=== PATIENT | male | born 1945 | race Caucasian/White ===

== ENCOUNTER 2022-11-09 14:37 | Outpatient (CLI) | payer MEDICARE, BC | END 2022-11-09 14:38 | disposition home or self-care (01) | LOC: CSHMRI 14:37 | PROVIDERS: ATTEND Psychiatry & Neurology Neurology | DX: M48.061 Spinal stenosis, lumbar region without neurogenic claudication (principal); M47.817 Spondylosis without myelopathy or radiculopathy, lumbosacral region | CPT/HCPCS: 72148 ==

== ENCOUNTER 2023-04-19 15:37 | Inpatient (IN) | payer MEDICARE, BC ==
[2023-04-19 16:06] VITALS: BMI 34.2
[2023-04-19] MEDS ORDERED: FLU VACC QS2023(65UP)/MF59C/PF 60 MCG/0.5 ML SYRINGE IM ONE (16:30)
[2023-04-19] MEDS ORDERED: Ondansetron PF 4 MG/2 ML Vial IVP PRN (18:08)
[2023-04-19] MEDS ORDERED: Ondansetron ODT 4 MG TAB PO PRN (18:08)
[2023-04-19] MEDS ORDERED: Glucagon 1 MG/ML KIT IM PRN (18:10)
[2023-04-19] MEDS ORDERED: Dextrose 5% in Water 1,000 ML IV PRN (18:10)
[2023-04-19] MEDS ORDERED: Dextrose 50% Abboject 50 ML SYRINGE SLOW IVP PRN (18:10)
[2023-04-19] MEDS ORDERED: HumaLOG 300 UNITS/3 ML VIAL SC PRN (18:10)
[2023-04-19] MEDS: Sodium Chloride 0.9% 1,000 ML IV SCH (18:24)
[2023-04-19] MEDS: HumaLOG 300 UNITS/3 ML VIAL SC PRN (18:40)
[2023-04-19] MEDS ORDERED: Bisacodyl 10 MG SUPP PR PRN (18:42)
[2023-04-19] MEDS ORDERED: hydrALAZINE 20 MG/ML VIAL SLOW IVP PRN (19:02)
[2023-04-19] MEDS ORDERED: Piperacillin/Tazobactam 3.375 GM in Sodium Chloride 0.9% 100 ML IVPB SCH (20:00)
[2023-04-19] MEDS: Pantoprazole 40 MG VIAL IVP SCH (20:18)
[2023-04-19 22:01] LABS: Lactic Acid 4.3 mmol/L (0.5-2.2)
[2023-04-19] MEDS ORDERED: Lactated Ringer's 1,000 ML IV SCH (22:45)
[2023-04-19 23:28] LABS: Bilirubin Neg (Negative); Blood, Urine Negative (Negative); Clarity Clear (Clear); Glucose, Urine (Dipstick) Normal (Negative); Ketone, Urine 5 mg/dL (Negative); Leukocyte Negative (Negative); Nitrite Negative (Negative); Protein, Urine (Dipstick) 15 mg/dl (Neg-Trace); Urobilinogen Normal mg/dL (Less than 2)
[2023-04-19] MEDS: Piperacillin/Tazobactam 3.375 GM in Sodium Chloride 0.9% 100 ML IVPB SCH (23:46)
[2023-04-19 23:58] LABS: Bacteria/HPF Rare-Few HPF (None Seen); CAUTI Indications for Culture Pelvic or flank pain; RBC/HPF None Seen HPF (0-3); WBC/HPF 0-3 HPF (0-3)
[2023-04-20] LABS: Urine Culture Reflex No No
[2023-04-20] MEDS: Sodium Chloride 0.9% 1,000 ML IV SCH ×4 (01:33→21:44)
[2023-04-20 02:35] LABS: Lactic Acid 2.3 mmol/L (0.5-2.2)
[2023-04-20 05:58] LABS: #Monocytes 1.3 10x3/uL (0.0-1.1); #Neutrophils 11.8 10x3/uL (1.5-8.4); %Basophils 0.3 % (0.0-2.0); %Eosinophils 0.1 % (0.0-6.0); %Lymphocytes 8.6 % (18.0-47.0); %Monocytes 8.7 % (0.0-10.0); %Neutrophils 81.6 % (40.0-75.0); Hematocrit 26.1 % (38.8-50.0); Hemoglobin 8.9 g/dL (13.5-17.5); Mean Corpuscular HGB CONC 34.1 g/dL (32.0-36.0); Mean Corpuscular Hemoglobin 30.7 pg (27.0-33.0); Mean Platelet Volume 9.7 fl (7.4-10.4); Platelet Count 178 10x3/uL (150-450); RBC Distribution Width 14.4 % (11.5-14.5); White Blood Cell (WBC) Count 14.5 10x3/uL (3.5-10.5)
[2023-04-20 06:05] LABS: ALT (SGPT) 18 U/L (8-55); AST (SGOT) 16 U/L (5-34); Albumin 3.1 g/dL (3.4-4.8); Alkaline Phosphatase 34 U/L (40-110); Anion Gap 13 mmol/L (10-20); BUN (Urea Nitrogen) 34 mg/dL (8.4-25.7); Bilirubin, Total 1.6 mg/dL (0.2-1.2); Calc. Creatinine Clearance 72 mL/min (70-130); Calcium 7.8 mg/dL (7.8-10.44); Carbon Dioxide 22 mmol/L (23-31); Chloride 108 mmol/L (98-107); Estimated GFR 58; Glucose 160 mg/dL (83-110); Lipase 56 U/L (8-78); Magnesium 1.3 mg/dL (1.6-2.6); Potassium 4.4 mmol/L (3.5-5.1); Protein, Total 5.1 g/dL (5.8-8.1); Sodium 139 mmol/L (136-145)
[2023-04-20 06:13] LABS: Cardiac Risk 4.1 (Less than 4.5); Cholesterol 116 mg/dl (< 200 Desired); HDL Cholesterol 28 mg/dL (>60 Neg Risk); LDL Cholesterol, Calculated 53 mg/dL; Triglycerides 174 mg/dL (Less than 150)
[2023-04-20] MEDS: Piperacillin/Tazobactam 3.375 GM in Sodium Chloride 0.9% 100 ML IVPB SCH ×2 (08:38→15:49)
[2023-04-20] MEDS: Pantoprazole 40 MG VIAL IVP SCH ×2 (08:39→21:44)
[2023-04-20] MEDS: Polyethylene Glycol 3350 17 GM Packet PO SCH (08:39)
[2023-04-20] MEDS: Magnesium 2 GM/50 ML(in water) 2 GM in Premix Bag 1 BAG IVPB SCH ×2 (08:39→10:00)
[2023-04-20] MEDS ORDERED: cloNIDine 0.1 MG TAB PO PRN (14:55)
[2023-04-20] MEDS ORDERED: Losartan Potassium 50 MG TAB PO SCH (16:00)
[2023-04-20] MEDS ORDERED: Acetaminophen 650 MG/20.3 ML UDCUP PO PRN (18:42)
[2023-04-21] MEDS: Piperacillin/Tazobactam 3.375 GM in Sodium Chloride 0.9% 100 ML IVPB SCH ×3 (00:01→17:11)
[2023-04-21] MEDS: Sodium Chloride 0.9% 1,000 ML IV SCH (03:47)
[2023-04-21 05:56] LABS: #Monocytes 0.7 10x3/uL (0.0-1.1); #Neutrophils 6.7 10x3/uL (1.5-8.4); %Basophils 0.3 % (0.0-2.0); %Eosinophils 0.5 % (0.0-6.0); %Lymphocytes 15.3 % (18.0-47.0); %Monocytes 7.9 % (0.0-10.0); %Neutrophils 75.4 % (40.0-75.0); Hematocrit 22.4 % (38.8-50.0); Hemoglobin 7.4 g/dL (13.5-17.5); Mean Corpuscular Hemoglobin 30.6 pg (27.0-33.0); Mean Corpuscular Volume 92.6 fl (81.2-95.1); Mean Platelet Volume 9.5 fl (7.4-10.4); Platelet Count 145 10x3/uL (150-450); RBC Distribution Width 14.6 % (11.5-14.5); Red Blood Cell (RBC) Count 2.42 10x6/uL (4.32-5.72); White Blood Cell (WBC) Count 8.9 10x3/uL (3.5-10.5)
[2023-04-21 06:12] LABS: ALT (SGPT) 16 U/L (8-55); AST (SGOT) 26 U/L (5-34); Albumin 2.9 g/dL (3.4-4.8); Alkaline Phosphatase 35 U/L (40-110); Anion Gap 12 mmol/L (10-20); BUN (Urea Nitrogen) 24 mg/dL (8.4-25.7); Bilirubin, Total 1.7 mg/dL (0.2-1.2); Calc. Creatinine Clearance 85 mL/min (70-130); Calcium 7.9 mg/dL (7.8-10.44); Carbon Dioxide 22 mmol/L (23-31); Chloride 109 mmol/L (98-107); Estimated GFR 71; Globulin 2.2 g/dL (2.4-3.5); Glucose 95 mg/dL (83-110); Magnesium 1.9 mg/dL (1.6-2.6); Potassium 3.8 mmol/L (3.5-5.1); Protein, Total 5.1 g/dL (5.8-8.1); Sodium 139 mmol/L (136-145)
[2023-04-21] MEDS: Glimepiride 2 MG TAB PO SCH (07:05)
[2023-04-21] MEDS: Polyethylene Glycol 3350 17 GM Packet PO SCH (08:29)
[2023-04-21] MEDS: Aspirin Chewable 81 MG TAB PO SCH (08:29)
[2023-04-21] MEDS: Losartan Potassium 50 MG TAB PO SCH (08:29)
[2023-04-21] MEDS: 1/2 NS w/KCL 20 mEq 1,000 ML IV SCH ×2 (08:30→17:06)
[2023-04-21] MEDS ORDERED: Magnevist 469MG/ML 20 ML VIAL ONE (10:32)
[2023-04-21 17:33] LABS: #Eosinphils 0.1 10x3/uL (0.0-0.5); #Monocytes 0.6 10x3/uL (0.0-1.1); #Neutrophils 6.5 10x3/uL (1.5-8.4); %Basophils 0.2 % (0.0-2.0); %Eosinophils 0.9 % (0.0-6.0); %Lymphocytes 13.9 % (18.0-47.0); %Monocytes 7.4 % (0.0-10.0); %Neutrophils 76.9 % (40.0-75.0); Hematocrit 22.7 % (38.8-50.0); Hemoglobin 7.6 g/dL (13.5-17.5); Mean Corpuscular HGB CONC 33.5 g/dL (32.0-36.0); Mean Corpuscular Hemoglobin 30.9 pg (27.0-33.0); Mean Corpuscular Volume 92.3 fl (81.2-95.1); Mean Platelet Volume 9.6 fl (7.4-10.4); Platelet Count 154 10x3/uL (150-450); RBC Distribution Width 14.5 % (11.5-14.5); Red Blood Cell (RBC) Count 2.46 10x6/uL (4.32-5.72); White Blood Cell (WBC) Count 8.5 10x3/uL (3.5-10.5)
[2023-04-22] MEDS: 1/2 NS w/KCL 20 mEq 1,000 ML IV SCH ×2 (01:26→16:33)
[2023-04-22] MEDS: Piperacillin/Tazobactam 3.375 GM in Sodium Chloride 0.9% 100 ML IVPB SCH ×3 (01:26→16:42)
[2023-04-22 04:25] LABS: #Eosinphils 0.1 10x3/uL (0.0-0.5); #Monocytes 0.6 10x3/uL (0.0-1.1); #Neutrophils 6.3 10x3/uL (1.5-8.4); %Basophils 0.1 % (0.0-2.0); %Eosinophils 1.1 % (0.0-6.0); %Lymphocytes 15.6 % (18.0-47.0); %Monocytes 6.9 % (0.0-10.0); %Neutrophils 75.5 % (40.0-75.0); Hematocrit 25.2 % (38.8-50.0); Hemoglobin 8.3 g/dL (13.5-17.5); Mean Corpuscular HGB CONC 32.9 g/dL (32.0-36.0); Mean Corpuscular Hemoglobin 31.1 pg (27.0-33.0); Mean Corpuscular Volume 94.4 fl (81.2-95.1); Mean Platelet Volume 10.3 fl (7.4-10.4); Platelet Count 168 10x3/uL (150-450); RBC Distribution Width 14.3 % (11.5-14.5); Red Blood Cell (RBC) Count 2.67 10x6/uL (4.32-5.72); White Blood Cell (WBC) Count 8.4 10x3/uL (3.5-10.5)
[2023-04-22] MEDS: Losartan Potassium 50 MG TAB PO SCH (09:25)
[2023-04-22] MEDS: Aspirin Chewable 81 MG TAB PO SCH (09:26)
[2023-04-22] MEDS: Glimepiride 2 MG TAB PO SCH (09:26)
[2023-04-22] MEDS: Polyethylene Glycol 3350 17 GM Packet PO SCH (09:28)
[2023-04-22] MEDS: HumaLOG 300 UNITS/3 ML VIAL SC PRN (12:51)
[2023-04-22] MEDS: Acetaminophen 650 MG/20.3 ML UDCUP PO PRN (18:43)
[2023-04-23] MEDS: Piperacillin/Tazobactam 3.375 GM in Sodium Chloride 0.9% 100 ML IVPB SCH ×3 (01:13→16:51)
[2023-04-23] MEDS: 1/2 NS w/KCL 20 mEq 1,000 ML IV SCH ×3 (01:15→21:35)
[2023-04-23 05:17] LABS: #Eosinphils 0.1 10x3/uL (0.0-0.5); #Monocytes 0.5 10x3/uL (0.0-1.1); #Neutrophils 4.5 10x3/uL (1.5-8.4); %Basophils 0.6 % (0.0-2.0); %Eosinophils 1.9 % (0.0-6.0); %Lymphocytes 17.2 % (18.0-47.0); %Monocytes 8.4 % (0.0-10.0); %Neutrophils 71.1 % (40.0-75.0); Hematocrit 20.9 % (38.8-50.0); Hemoglobin 7.1 g/dL (13.5-17.5); Mean Corpuscular Hemoglobin 31.4 pg (27.0-33.0); Mean Corpuscular Volume 92.5 fl (81.2-95.1); Mean Platelet Volume 9.7 fl (7.4-10.4); Platelet Count 161 10x3/uL (150-450); RBC Distribution Width 14.5 % (11.5-14.5); Red Blood Cell (RBC) Count 2.26 10x6/uL (4.32-5.72); White Blood Cell (WBC) Count 6.3 10x3/uL (3.5-10.5)
[2023-04-23] MEDS: Glimepiride 2 MG TAB PO SCH (08:23)
[2023-04-23] MEDS: Losartan Potassium 50 MG TAB PO SCH (08:23)
[2023-04-23] MEDS: Aspirin Chewable 81 MG TAB PO SCH (08:23)
[2023-04-23] MEDS: Polyethylene Glycol 3350 17 GM Packet PO SCH ×2 (08:26→08:30)
[2023-04-23 13:19] LABS: Hematocrit 23.5 % (38.8-50.0); Hemoglobin 7.8 g/dL (13.5-17.5); Platelet Count 180 10x3/uL (150-450)
[2023-04-24] MEDS: Piperacillin/Tazobactam 3.375 GM in Sodium Chloride 0.9% 100 ML IVPB SCH ×4 (01:46→23:17)
[2023-04-24] MEDS: 1/2 NS w/KCL 20 mEq 1,000 ML IV SCH ×2 (06:55→17:42)
[2023-04-24 08:01] LABS: #Eosinphils 0.1 10x3/uL (0.0-0.5); #Monocytes 0.4 10x3/uL (0.0-1.1); #Neutrophils 3.4 10x3/uL (1.5-8.4); %Basophils 0.6 % (0.0-2.0); %Lymphocytes 21.3 % (18.0-47.0); %Monocytes 7.5 % (0.0-10.0); %Neutrophils 67.4 % (40.0-75.0); Hematocrit 21.3 % (38.8-50.0); Mean Corpuscular HGB CONC 32.9 g/dL (32.0-36.0); Mean Corpuscular Hemoglobin 31.3 pg (27.0-33.0); Mean Corpuscular Volume 95.1 fl (81.2-95.1); Mean Platelet Volume 9.8 fl (7.4-10.4); Platelet Count 171 10x3/uL (150-450); RBC Distribution Width 14.3 % (11.5-14.5); Red Blood Cell (RBC) Count 2.24 10x6/uL (4.32-5.72); White Blood Cell (WBC) Count 5.1 10x3/uL (3.5-10.5)
[2023-04-24] MEDS: Aspirin Chewable 81 MG TAB PO SCH (09:24)
[2023-04-24] MEDS: Losartan Potassium 50 MG TAB PO SCH (09:24)
[2023-04-24] MEDS: Polyethylene Glycol 3350 17 GM Packet PO SCH (09:24)
[2023-04-24] MEDS: Glimepiride 2 MG TAB PO SCH (09:26)
[2023-04-24] MEDS ORDERED: PROPOFOL 20 ML ONE (14:20)
[2023-04-25 03:51] LABS: #Eosinphils 0.1 10x3/uL (0.0-0.5); #Monocytes 0.5 10x3/uL (0.0-1.1); %Basophils 0.7 % (0.0-2.0); %Eosinophils 2.3 % (0.0-6.0); %Lymphocytes 21.8 % (18.0-47.0); %Monocytes 8.1 % (0.0-10.0); %Neutrophils 65.8 % (40.0-75.0); Hematocrit 23.8 % (38.8-50.0); Hemoglobin 7.8 g/dL (13.5-17.5); Mean Corpuscular HGB CONC 32.8 g/dL (32.0-36.0); Mean Corpuscular Hemoglobin 30.8 pg (27.0-33.0); Mean Corpuscular Volume 94.1 fl (81.2-95.1); Platelet Count 207 10x3/uL (150-450); RBC Distribution Width 14.2 % (11.5-14.5); Red Blood Cell (RBC) Count 2.53 10x6/uL (4.32-5.72)
[2023-04-25] MEDS: 1/2 NS w/KCL 20 mEq 1,000 ML IV SCH (04:56)
[2023-04-25 06:22] VITALS: TEMP 98.1
[2023-04-25] MEDS: Piperacillin/Tazobactam 3.375 GM in Sodium Chloride 0.9% 100 ML IVPB SCH (07:48)
[2023-04-25] MEDS: Aspirin Chewable 81 MG TAB PO SCH (07:49)
[2023-04-25] MEDS: Polyethylene Glycol 3350 17 GM Packet PO SCH (07:50)
[2023-04-25] MEDS: Losartan Potassium 50 MG TAB PO SCH (07:50)
[2023-04-25] MEDS: Glimepiride 2 MG TAB PO SCH (07:51)
[2023-04-25] MEDS: Acetaminophen 650 MG/20.3 ML UDCUP PO PRN (07:54)
[2023-04-25 08:18] VITALS: BP 172/78
== END 2023-04-25 12:00 | disposition home or self-care (01) | DRG 377 ==
LOC: CSHTELE 15:37
PROVIDERS: ADMIT Hospitalist; ATTEND Internal Medicine
PROC: 0DJ08ZZ Inspection of Upper Intestinal Tract, Via Natural or Artificial Opening Endoscopic (ICD-10-PCS; principal; 2023-04-24)
DX: K29.71 Gastritis, unspecified, with bleeding (principal); K85.90 Acute pancreatitis without necrosis or infection, unspecified; D62 Acute posthemorrhagic anemia; J90 Pleural effusion, not elsewhere classified; K80.20 Calculus of gallbladder without cholecystitis without obstruction; K31.9 Disease of stomach and duodenum, unspecified; E11.40 Type 2 diabetes mellitus with diabetic neuropathy, unspecified; I10 Essential (primary) hypertension; E78.5 Hyperlipidemia, unspecified; K21.9 Gastro-esophageal reflux disease without esophagitis; Z91.040 Latex allergy status; Z88.8 Allergy status to other drugs, medicaments and biological substances; Z79.82 Long term (current) use of aspirin; Z79.84 Long term (current) use of oral hypoglycemic drugs; Z79.899 Other long term (current) drug therapy; I25.10 Atherosclerotic heart disease of native coronary artery without angina pectoris; Z82.49 Family history of ischemic heart disease and other diseases of the circulatory system; Z80.0 Family history of malignant neoplasm of digestive organs; Z79.4 Long term (current) use of insulin; E83.42 Hypomagnesemia; Z98.84 Bariatric surgery status
CPT/HCPCS: 36415; 36416; 74176; 74183; 76705; 78278; 80053; 80061; 82274; 83605; 83690; 83735; 85025; 93005; 93010; 94760; A9560; A9579; C9113; J0360; J1815; J2543; J2704; J3475; J3480; J3490; J7050; J7070; J7120